=== PATIENT | male | born 1965 | race Caucasian/White ===

== ENCOUNTER 2019-07-10 06:38 | Day surgery (SDC) | payer MEDICAID ==
[~2019-07-10] VITALS: Ht 177.8 cm; Wt 100.0 kg
[~2019-07-10 06:38] MED LIST: SODIUM CHLORIDE 0.9% 1,000 ML IV ONE; SODIUM CHLORIDE 0.9% 1,000 ML ONE
[2019-07-10] MEDS ORDERED: MIDAZOLAM HCL 2 MG/2 ML VIAL ONE (07:22)
[2019-07-10] MEDS ORDERED: FentaNYL CITRATE-PF 100 MCG/2 ML VIAL ONE (07:22)
[2019-07-10] MEDS ORDERED: VALA500T38 PO (08:14)
[2019-07-10] MEDS ORDERED: PANT40TA25 PO (08:14)
[2019-07-10] MEDS ORDERED: ANAS1TAB50 PO (08:25)
[2019-07-10] MEDS ORDERED: CETI10TA59 PO (08:25)
[2019-07-10] MEDS ORDERED: CYCL10 PO (08:25)
[2019-07-10] MEDS ORDERED: TRAM50TA4 PO (08:25)
[2019-07-10] MEDS ORDERED: PROG100C11 PO (08:25)
[2019-07-10] MEDS ORDERED: MethylPREDNISolone SOD SUCC 125 MG/2 ML VIAL IVP ONE (09:15)
[2019-07-10] MEDS ORDERED: MethylPREDNISolone SOD SUCC 125 MG/2 ML VIAL ONE (09:18)
[2019-07-10] MEDS ORDERED: LIDOCAINE 2% 30 ML JELLY TP ONE (12:00)
[2019-07-10] MEDS ORDERED: LIDOCAINE 4% 50 ML SOLUTION TP ONE (12:00)
[2019-07-10] MEDS ORDERED: ALBUTEROL SULFATE 2.5 MG/0.5 ML NEB SOLUTION NEB ONE (12:00)
[2019-07-10] MEDS ORDERED: BENZOCAINE 20% 50 MCG/SPRAY 57 GM TP ONE (12:00)
[2019-07-10] MEDS ORDERED: OXYGEN THERAPY IH SCH (20:00)
== END 2019-07-10 10:30 | disposition home or self-care (01) ==
LOC: SURGERY 06:38
PROVIDERS: ATTEND Internal Medicine Critical Care Medicine
DX: R05 Cough (principal); R91.1 Solitary pulmonary nodule; J34.89 Other specified disorders of nose and nasal sinuses; J98.8 Other specified respiratory disorders; J38.4 Edema of larynx; B37.0 Candidal stomatitis; J44.9 Chronic obstructive pulmonary disease, unspecified; G47.33 Obstructive sleep apnea (adult) (pediatric); Z88.1 Allergy status to other antibiotic agents; Z88.8 Allergy status to other drugs, medicaments and biological substances; Z91.018 Allergy to other foods; R19.09 Other intra-abdominal and pelvic swelling, mass and lump; Z79.899 Other long term (current) drug therapy; Z98.890 Other specified postprocedural states
CPT/HCPCS: 31623; 31624; 71045; 87015; 87070 ×2; 87101; 87205; 87206; 87220; 87252 ×2; 88108; 88184; 88185; J2250; J2930; J3010; J7030